=== PATIENT | female | born 1995 | race Hispanic/Latino ===

== ENCOUNTER 2018-05-13 08:43 | Emergency (ER) | payer SELFPAY ==
[2018-05-13 09:11] LABS: APPEARANCE,URINE Clear (CLEAR); BILIRUBIN,URINE Negative (NEGATIVE); COLOR,URINE Yellow (YELLOW); GLUCOSE, URINE (UA) Negative (NEGATIVE); KETONES,URINE Trace mg/dL (NEGATIVE); LEUKOCYTE ESTERASE ,URINE Negative (NEGATIVE); NITRATE,URINE Negative (NEGATIVE); OCCULT BLOOD,URINE Nonhemolyzed Trace (NEGATIVE); PH,URINE 6.5 (5.0-8.0); PROTEIN,URINE Negative (NEGATIVE)
[2018-05-13] MEDS ORDERED: CEFTRIAXONE SODIUM 1 GM ONE (09:11)
[2018-05-13] MEDS ORDERED: LIDOCAINE HCL-MPF 1% 2ML VIAL ONE (09:11)
[2018-05-13] MEDS ORDERED: AZITHROMYCIN 250 MG TABLET PO ONE (09:12)
[2018-05-13 09:15] LABS: HCG,QUAL RESULT NEGATIVE (NEGATIVE)
[2018-05-13 09:28] LABS: BACTERIA,URINE Rare /HPF (None Seen); WBC,URINE 0-1 /HPF (0-1)
[2018-05-13 09:29] LABS: SQUAMOUS EPITHELIAL CELL,UR Few /HPF (0-2)
== END 2018-05-13 09:57 | disposition home or self-care (01) ==
LOC: EDH 08:43
DX: N34.2 Other urethritis (principal); Z20.2 Contact with and (suspected) exposure to infections with a predominantly sexual mode of transmission; Z87.891 Personal history of nicotine dependence
CPT/HCPCS: 81001; 81025; 87486; 87797; 96372; 99283; J0696; J3490

== ENCOUNTER 2018-09-17 19:29 | Emergency (ER) | payer OTHER ==
[2018-09-17 19:57] LABS: APPEARANCE,URINE Clear (CLEAR); BILIRUBIN,URINE Negative (NEGATIVE); COLOR,URINE Yellow (YELLOW); GLUCOSE, URINE (UA) Negative (NEGATIVE); KETONES,URINE Negative (NEGATIVE); LEUKOCYTE ESTERASE ,URINE Negative (NEGATIVE); NITRATE,URINE Negative (NEGATIVE); OCCULT BLOOD,URINE Negative (NEGATIVE); PROTEIN,URINE Negative (NEGATIVE); UROBILINOGEN,URINE 0.2 mg/dL (0.2-1.0)
[2018-09-17 19:58] LABS: HCG,QUAL RESULT NEGATIVE (NEGATIVE)
[2018-09-17] MEDS ORDERED: CEFTRIAXONE SODIUM 500 MG VIAL ONE (20:15)
[2018-09-17] MEDS ORDERED: LIDOCAINE HCL-MPF 1% 2ML VIAL ONE (20:15)
[2018-09-17] MEDS ORDERED: AZITHROMYCIN 250 MG TABLET PO ONE (20:16)
== END 2018-09-17 20:35 | disposition home or self-care (01) ==
LOC: EDH 19:29
DX: N89.8 Other specified noninflammatory disorders of vagina (principal)
CPT/HCPCS: 81003; 81025; 87486; 87797; 96372; 99284; J0696; J3490